=== PATIENT | male | born 1990 | race Caucasian/White ===

== ENCOUNTER 2016-07-17 13:43 | Emergency (ER) | payer BC ==
[~2016-07-17] VITALS: Ht 180.3 cm; Wt 75.0 kg
[~2016-07-17 13:43] MED LIST: KEFLEX500 MG PO; NEXIUM40 M1 PO; TYLENOL # 31 TA1 PO; ZYRTEC10 M1 PO
[2016-07-17] MEDS ORDERED: TRAMADOL HYDROC50 MG PO (14:50)
[2016-07-17] MEDS ORDERED: KEFLEX500 MG PO (14:50)
[2016-07-17 14:51] VITALS: BP 150/95
== END 2016-07-17 14:57 | disposition home or self-care (01) | DRG 605 ==
LOC: ED 13:43
PROC: 0HQFXZZ Repair Right Hand Skin, External Approach (ICD-10-PCS; principal; 2016-07-17)
DX: S61.411A Laceration without foreign body of right hand, initial encounter (principal); F17.210 Nicotine dependence, cigarettes, uncomplicated; Y00.XXXA Assault by blunt object, initial encounter; Y92.009 Unspecified place in unspecified non-institutional (private) residence as the place of occurrence of the external cause

== ENCOUNTER 2019-01-06 18:22 | Emergency (ER) | payer BC ==
[~2019-01-06] VITALS: Ht 180.3 cm; Wt 79.0 kg
[~2019-01-06 18:22] MED LIST changes: +TRAMADOL HYDROC50 MG PO
[2019-01-06] MEDS ORDERED: AMOXICILLIN500 MG PO (20:05)
[2019-01-06 20:16] VITALS: BP 125/76
== END 2019-01-06 20:16 | disposition home or self-care (01) | DRG 153 ==
LOC: ED 18:22
DX: J03.90 Acute tonsillitis, unspecified (principal)

== ENCOUNTER 2019-04-28 | Emergency (ER) | payer BC ==
[~2019-04-28] MED LIST changes: +AMOXICILLIN500 MG PO
[2019-04-28] MEDS ORDERED: CEPHALEXIN500 M1 PO (12:26)
== END 2019-04-28 13:22 | disposition home or self-care (01) | DRG 605 ==
PROC: 0HQEXZZ Repair Left Lower Arm Skin, External Approach (ICD-10-PCS; principal; 2019-04-28)
DX: S51.812A Laceration without foreign body of left forearm, initial encounter (principal); F17.210 Nicotine dependence, cigarettes, uncomplicated; W28.XXXA Contact with powered lawn mower, initial encounter; Y93.89 Activity, other specified; Y92.009 Unspecified place in unspecified non-institutional (private) residence as the place of occurrence of the external cause

== ENCOUNTER 2023-08-12 11:44 | Emergency (ER) | payer BC ==
[~2023-08-12] VITALS: Ht 180.3 cm; Wt 83.2 kg
[~2023-08-12 11:44] MED LIST changes: +CEPHALEXIN500 M1 PO
[2023-08-12 11:49] VITALS: BP 130/71
[2023-08-12] MEDS ORDERED: LIDOcaine HCl 1% (Local Anesth.) 20 ML VIAL STI STA (11:53)
[2023-08-12] MEDS ORDERED: POVIDONE IODINE 0.5 OZ/BTL TOP STA (11:53)
[2023-08-12 12:00] VITALS: BP 122/68
[2023-08-12 12:15] VITALS: BP 121/60
[2023-08-13] MEDS ORDERED: BACTRIM DS1 TAB PO (11:24)
[2023-08-13] MEDS ORDERED: LISINOPRIL5 MG PO (11:24)
[2023-08-13] MEDS ORDERED: VITAMIN D350000 UNIT (11:25)
[2023-08-13] MEDS ORDERED: LASIX 40 MG TAB40 MG PO (11:26)
[2023-08-13] MEDS ORDERED: ALDACTONE25 MG PO (11:26)
== END 2023-08-12 12:54 | disposition home or self-care (01) | DRG 603 ==
LOC: ED 11:44
PROC: 0H96XZZ Drainage of Back Skin, External Approach (ICD-10-PCS; principal; 2023-08-12)
DX: L02.212 Cutaneous abscess of back [any part, except buttock and flank] (principal); K70.30 Alcoholic cirrhosis of liver without ascites

== ENCOUNTER 2023-08-13 10:43 | Emergency (ER) | payer BC ==
[~2023-08-13] VITALS: Ht 180.3 cm; Wt 93.9 kg
[2023-08-13] MEDS ORDERED: BACTRIM DS1 TAB PO (11:24)
[2023-08-13] MEDS ORDERED: LISINOPRIL5 MG PO (11:24)
[2023-08-13] MEDS ORDERED: VITAMIN D350000 UNIT (11:25)
[2023-08-13] MEDS ORDERED: LASIX 40 MG TAB40 MG PO (11:26)
[2023-08-13] MEDS ORDERED: ALDACTONE25 MG PO (11:26)
[2023-08-13 12:38] VITALS: BP 126/63
== END 2023-08-13 12:42 | disposition home or self-care (01) | DRG 951 ==
LOC: ED 10:43
DX: Z48.01 Encounter for change or removal of surgical wound dressing (principal); I10 Essential (primary) hypertension; F17.210 Nicotine dependence, cigarettes, uncomplicated